=== PATIENT | male | born 1975 | race Asian ===

== ENCOUNTER → 2016-07-16 | Outpatient (CLI) | payer OTHER ==
[2016-07-16 13:44] LABS: DAYS OF ABSTINENCE 9; METHOD OF COLLECTION MASTURBATION; SEMEN COLOR GRAY OR GRAY-WHITE (GRY/GRYWHTE); SEMEN TIME OF COLLECTION 1002; SEMEN VOLUME 1.7 ML (>1.5); TYPE OF SPECIMEN CONTAINER STERILE CUP
[2016-07-16 13:45] LABS: SPERM VIABILITY STAIN NOT INDICATED % (>58%)
== END | disposition home or self-care (01) ==
LOC: C.LAB 10:27
PROVIDERS: ATTEND Obstetrics & Gynecology
DX: R89.9 Unspecified abnormal finding in specimens from other organs, systems and tissues (principal)

== ENCOUNTER → 2017-04-13 | Outpatient (CLI) | payer OTHER ==
[~2017-04-13] MED LIST: GADAVIST IV PRN; PATIENT'S ALLERGY INFO NEEDS ENTERED STA
--- NOTE | 2017-04-13 12:02 | DIAGNOSTIC IMAGING REPORT ---
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 Imaging was performed before and after the administration of 6.5 cc of intravenous Gadavist. COMPARISON STUDY: No previous studies for comparison. There are no suspicious areas of marrow replacement. C2-3: There is no evidence of disc bulge or focal herniation. There is no spinal or foraminal stenosis. C3-4: There is no evidence of disc bulge or focal herniation. There is no spinal or foraminal stenosis. C4-5: There are no disc bulges or focal herniations. There is no spinal or foraminal stenosis. C5-6 :There are no disc bulges or focal herniations. There is no spinal or foraminal stenosis. C6-7: There is no evidence of disc bulge or focal herniation. There is no evidence of spinal or foraminal stenosis. C7-T1: There is no evidence of disc bulge or focal herniation. There is no evidence of spinal or foraminal stenosis. There is a cervical cord syrinx extending from the medulla to at least the T3 level. The syrinx demonstrates multiple lobulations. The maximal diameter of the syrinx is at the C6-7 level with a syrinx measures 5.1 mm in diameter. Postcontrast images reveal no pathologic enhancement. IMPRESSION: 1. Large lobulated cervicothoracic syrinx. The maximal syrinx diameter is at the C6-7 level measuring 5.1 mm. No evidence of pathologic enhancement. 2. No cervical disc herniations. No spinal or foraminal stenosis. Electronically signed by: Farhan Pham M.D. 04/13/2017 12:01 PM Dictated Date/Time: 04/13/2017 11:55 AM
--- NOTE | 2017-04-13 14:05 | DIAGNOSTIC IMAGING REPORT ---
MRI OF THE THORACIC SPINE COMBO CLINICAL HISTORY: Syringomyelia. COMPARISON STUDY: No priors. TECHNIQUE: MRI of the thoracic spine is performed utilizing various T1 and T2-weighted sequences in the axial and sagittal planes. Contrast-enhanced sequences were acquired following the IV administration of 6.5 cc of Gadavist. FINDINGS: Vertebral body height and alignment are maintained throughout the thoracic spine. Normal marrow signal intensity is preserved throughout the visualized bony structures. The transverse processes appear intact. The intervertebral discs are normal in height and signal intensity. There is no disc herniation or acquired compromise of the central canal. No significant neural foraminal stenosis is seen throughout the thoracic spine. There is a large cervicothoracic syrinx identified. This extends from the visualized lower cervical spine to the level of T4. This measures a maximum thickness of 4.5 mm in the thoracic spine at the level of T2. There is mild thinning of the cord in the upper cervical region. No abnormal enhancement is seen on the postcontrast images. The mid to distal thoracic cord is normal in morphology and signal intensity. The conus medullaris likely terminates at the level of L1. The paraspinous soft tissues are within normal limits. The lung parenchyma is clear as visualized. IMPRESSION: 1. There is a cervicothoracic syrinx as above. This extends from the visualized lower cervical cord to the level of T4. 2. The mid to distal thoracic cord is normal in appearance. 3. No abnormal cord enhancement is seen on the postcontrast images. 4. No bony abnormality is seen. 5. There is no disc herniation or central canal stenosis. Dictated: 04/13/2017 1:09 PM Transcribed: 04/13/2017 2:05 PM [email or web address] Electronically signed by: Demarcus Morillo M.D. 04/13/2017 2:08 PM Dictated Date/Time: 04/13/2017 1:09 PM
== END | disposition home or self-care (01) ==
LOC: C.MRI 09:18
PROVIDERS: ATTEND Psychiatry & Neurology Neurology
DX: G95.0 Syringomyelia and syringobulbia (principal)